=== PATIENT | female | born 1965 | race Caucasian/White ===

== ENCOUNTER 2024-04-11 08:54 | Outpatient (CLI) | payer OTHER, SELFPAY ==
--- NOTE | ~2024-04-11 | CT_ITS ---
EXAMINATION: CT soft tissue neck w con DATE: 04/11/2024 09:42 INDICATION: Localized swelling, mass and lump, left neck. Left neck pain. TECHNIQUE: Computed tomography (CT) of the neck was performed with 75 mL Omnipaque-350 intravenous co ntrast. Automated exposure control and iterative reconstruction technique were employed. The dose-eli gth product was 365.73 mGy-cm. COMPARISON: None FINDINGS: There are no pathologically enlarged lymph nodes. There is mild mucosal thickening in left maxillary sinus. There is mild plaque in the proximal internal carotid arteries with 0% stenosis rela tive to normal distal artery lumen diameters. There is severe cervical spondylosis. IMPRESSION: 1. No abnormal neck mass or lymphadenopathy. Reviewed, dictated and finalized at location A. WE[facility]ER
== END 2024-04-11 08:55 | disposition home or self-care (01) ==
LOC: MICIMG 08:55
PROVIDERS: PCP Physician Assistant Medical; Visit Provider Physician Assistant Medical
DX: R22.1 Localized swelling, mass and lump, neck (principal)
CPT/HCPCS: 70491; Q9967